=== PATIENT | female | born 1985 | race Two or more races ===

== ENCOUNTER 2022-07-19 09:34 | Emergency (ER) | payer MEDICAID ==
[~2022-07-19] VITALS: Ht 162.6 cm; Wt 82.0 kg
[2022-07-19] MEDS ORDERED: SODIUM CHLORIDE 0.9% 1,000 ML IV ONE (10:30)
[2022-07-19 10:52] LABS: BASOPHILS % 0.6 % (0.0-2.0); EOSINOPHILS % 2.2 % (0.0-5.0); HEMATOCRIT. 40.6 % (36.0-48.0); LYMPHOCYTES % 21.1 % (20.0-50.0); MEAN CORPUSCULAR HEMOGLOBIN 32.2 pg (28.0-32.0); MEAN CORPUSCULAR VOLUME 93.4 fL (81.0-99.0); MEAN PLATELET VOLUME 8.3 fl (7.4-10.4); MONOCYTES % 4.3 % (2.0-8.0); NEUTROPHILS % 71.8 % (40.0-76.0); PLATELET 248 x1000/uL (130-400); RED BLOOD CELL COUNT 4.35 mill/uL (4.2-5.4); RED CELL DISTRIBUTION WIDTH 13.3 % (11.6-14.6)
[2022-07-19 10:59] LABS: CHLORIDE 106 mEq/L (98-107)
[2022-07-19 11:02] LABS: HCG SCREEN NEGATIVE
[2022-07-19 11:10] LABS: ETHANOL BLOOD < 10 mg/dL
[2022-07-19 11:37] LABS: *AMPHETAMINES SCREEN URINE NEGATIVE (NEGATIVE); *BARBITURATES SCREEN URINE NEGATIVE (NEGATIVE); *BENZODIAZEPINES SCREEN URINE NEGATIVE (NEGATIVE); *COCAINE SCREEN URINE NEGATIVE (NEGATIVE); CANNABINOID URINE SCREEN NEGATIVE (NEGATIVE); METHADONE URINE SCREEN NEGATIVE (NEGATIVE); OPIATES URINE SCREEN NEGATIVE (NEGATIVE); PHENCYCLIDINE URINE SCREEN NEGATIVE (NEGATIVE)
[2022-07-19] MEDS ORDERED: KETOROLAC 30MG/ML VIAL IV ONE (12:15)
[2022-07-19 13:01] VITALS: BP 114/62
[2022-07-19] MEDS ORDERED: MECLIZINE 25MG TABLET PO ONE (13:45)
[2022-07-19] MEDS ORDERED: DIAZEPAM 5 MG TABLET PO ONE (15:00)
[2022-07-19] MEDS ORDERED: IBUP-2030 MT (15:09)
[2022-07-19] MEDS ORDERED: METH-773 MT (15:09)
== END 2022-07-19 15:55 | disposition home or self-care (01) ==
LOC: ER 09:34
DX: S09.8XXA Other specified injuries of head, initial encounter (principal); R42 Dizziness and giddiness; M54.2 Cervicalgia; E86.0 Dehydration; X58.XXXA Exposure to other specified factors, initial encounter; Y93.89 Activity, other specified; Y92.89 Other specified places as the place of occurrence of the external cause; Y99.8 Other external cause status; J45.909 Unspecified asthma, uncomplicated
CPT/HCPCS: 36415; 70450; 71045; 72125; 80053; 80305; 80320; 81025; 83880; 84484; 84703; 85025; 93005; 96361; 96374; 99285; J1885; J7030; G0480